=== PATIENT | female | born 1985 | race Caucasian/White ===

== ENCOUNTER 2016-09-05 12:18 | Inpatient (IN) | payer MEDICARE, MEDICAID ==
[~2016-09-05] VITALS: Ht 160 cm; Wt 50.0 kg
[~2016-09-05 12:18] MED LIST: DEPO150I IM; GABA100C4 PO; HYDR-3533 PO; PRED10 PO
[2016-09-05 12:21] VITALS: BP 144/53; PULSE 92; RESP 14; TEMP 98.7; O2SAT 99
--- NOTE | 2016-09-05 12:26 | PD ---
Physical Exam Date Seen by Provider: September 05, 2016 Time Seen by Provider: 12:22 Narrative [address] JAMES FOR LOW NEUTAPHILS COUNT 0.2 . 12 WEEK . ABO. PT OF DR LEVINE. NO F/C, N/V, EASY BRUISING. H/O CVA AND CHRONIC PAIN VVS WAITING FOR BED PLACEMENT Data Data Last Documented VS Vital Signs Date Time Temp Pulse Resp B/P Pulse Ox O2 Delivery O2 Flow Rate FiO2 09/05/16 12:21 98.7 92 14 144/53 99 MDM Medical Record Reviewed: Yes Supervised Visit with VANESA: No iMchael Rodriguez September 05, 2016 12:26
[2016-09-05] MEDS ORDERED: SODIUM CHLOR 0.9% 1000 ML INJ 1,000 ML IV ONE (13:00)
[2016-09-05 13:01] VITALS: PULSE 77; O2SAT 98
[2016-09-05 13:28] LABS: HEMATOCRIT 25.1 % (35.0-46.0); MEAN CELL VOLUME 83.7 FL (80.0-100.0); MEAN CORPUSCULAR HEMOGLOBIN 28.5 PG (27.0-34.0); PLATELET COUNT 98 TH/MM3 (150-450); RED CELL DISTRIBUTION WIDTH 13.6 % (11.6-17.2); WHITE BLOOD COUNT 1.4 TH/MM3 (4.0-11.0)
[2016-09-05 13:34] LABS: HEMO FLAGS AUTO DIFF
[2016-09-05 13:41] LABS: BLOOD, URINE LARGE (NEG); GLUCOSE,URINE NEG (NEG); KETONE, URINE NEG (NEG); MUCUS URINE MOD /lpf (OCC); NITRITE,URINE NEG (NEG); SQUAMOUS EPITHELIAL CELL URINE 3 /hpf (0-5); TRANSITIONAL EPI CELLS, URINE <1 /hpf; URINE COLOR YELLOW (YELLW/STRAW)
[2016-09-05 13:45] LABS: COMMENT (UR) CULT NOT INDICATED; CULTURE IF INDICATED CULT NOT INDICATED
[2016-09-05 14:05] LABS: BANDS 1 % (0-6); BASOPHILS 1 % (0-2); EOSINOPHILS 1 % (0-4); POLYS (SEG NEUTROPHILS) 21 % (16-70); WBC DIFF SAMPLE 100
[2016-09-05 14:08] LABS: NEUTROPHIL # MANUAL DIFF 0.3 TH/MM3 (1.8-7.7)
[2016-09-05 14:10] LABS: OVALOCYTES 1+ (NORMAL); PLATELET ESTIMATE SMEAR LOW (NORMAL); PLATELET MORPHOLOGY NORMAL (NORMAL); SCAN/DIFF FINAL DIFF MANUAL
[2016-09-05] MEDS ORDERED: ASPI81TA5 PO (14:22)
[2016-09-05] MEDS ORDERED: GABA300C5 PO (14:22)
[2016-09-05] MEDS ORDERED: HYDR-3535 PO (14:23)
[2016-09-05] MEDS ORDERED: SODIUM CHLORIDE 0.9% FLUSH 10 ML FLUSH IV FLUSH PRN (15:00)
[2016-09-05] MEDS ORDERED: NALOXONE HCL 0.4 MG/ML AMP IV PRN (15:00)
[2016-09-05] MEDS ORDERED: ONDANSETRON HCL 4 MG/2 ML VIAL IVP PRN (15:00)
--- NOTE | 2016-09-05 15:02 | PD ---
HPI Chief Complaint: Abnormal Results Time Seen by Provider: 12:48 Travel History International Travel<30 days: No Contact w/Intl Traveler<30days: No Traveled to known affect area: No History of Present Illness HPI This is a 30-year-old female with history of lupus, who is also 12 weeks , who presents here at the request of her neurologist, Dr. Ladd. Patient had labs that showed an absolute neutrophil count of 0.2. The patient has had general malaise. She says she is not feeling her normal self. There are no reported fevers, chills. There is no pulmonary symptoms. There is no urinary symptoms suspicious for . The patient had competitions with her first but did deliver and has a healthy daughter. At that time she was seen by Dr. Vasquez, pillow agent. There are no other complaints time my examination. PFSH Past Medical History Arthritis: Yes (RA) Autoimmune Disease: Yes (LUPUS ) Blood Disorders: No Cancer: No Cardiovascular Problems: No Cerebrovascular Accident: Yes Diminished Hearing: No Endocrine: No Gastrointestinal Disorders: Yes Genitourinary: No Immune Disorder: Yes (RA, LUPUS) Implanted Vascular Access Dvce: No Medical other: Yes (LUPUS) Musculoskeletal: Yes Neurologic: No Psychiatric: No Reproductive: No Respiratory: No Immunizations Current: No Tetanus Vaccination: Unknown Influenza Vaccination: No PNEUMOCCOCAL Vaccine (Year): 2 ?: LMP: 06/09/16 Menopausal: No : 1 Para: 1 Past Surgical History Abdominal Surgery: No Cardiac Surgery: No Section: Yes (x1) Ear Surgery: No Endocrine Surgery: No Eye Surgery: No Genitourinary Surgery: No Gynecologic Surgery: Yes Oral Surgery: No Thoracic Surgery: No Other Surgery: Yes (C SECTION) Social History Alcohol Use: No Tobacco Use: No (QUIT 1 MONTH AGO) Substance Use: No Allergies-Medications (Allergen,Severity, Reaction): Coded Allergies: Bactrim (Verified Allergy, Severe, Anaphylaxis, 04/20/14) Sulfa (Unverified Allergy, Severe, Anaphylaxis, 04/25/14) Reported Meds & Prescriptions Reported Meds & Active Scripts Active Reported Lortab (Hydrocodone-Acetaminophen) 10-325 Mg Tab 1 Tab PO Q6H PRN Aspirin DR (Aspirin) 81 Mg Tabdr 81 Mg PO DAILY Gabapentin 300 Mg Cap 300 Mg PO HS Review of Systems Except as stated in HPI: all other systems reviewed are Neg General / Constitutional: No: Fever, Chills HENT: No: Headaches, Lightheadedness Cardiovascular: No: Chest Pain or Discomfort, Palpitations Respiratory: No: Cough, Shortness of Breath Gastrointestinal: Positive: Constipation, No: Nausea, Vomiting, Abdominal Pain Genitourinary: No: Frequency, Dysuria Musculoskeletal: Positive: Weakness (generalized), No: Pain Neurologic: Positive: Weakness (generalized), No: Headache Physical Exam Narrative GENERAL: Well-nourished, well-developed patient, in no acute respiratory distress. SKIN: Focused skin assessment warm/dry. HEAD: Normocephalic/atraumatic. EYES: No scleral icterus. No injection or drainage. Slightly pale conjunctiva. NECK: Supple, trachea midline. No JVD or lymphadenopathy. CARDIOVASCULAR: Regular rate and rhythm without murmurs, gallops, or rubs. RESPIRATORY: Breath sounds equal bilaterally. No accessory muscle use. GASTROINTESTINAL: Abdomen soft, gravid, non-tender, nondistended. MUSCULOSKELETAL: No cyanosis, or edema. Cap refill slightly delayed at 3 seconds. NEUROLOGICAL: Awake and alert. Cranial nerves II through XII intact. Motor within normal limits. Five out of 5 muscle strength in all muscle groups. Normal speech. Data Data Last Documented VS Vital Signs Date Time Temp Pulse Resp B/P Pulse Ox O2 Delivery O2 Flow Rate FiO2 09/05/16 13:01 77 98 09/05/16 12:21 98.7 14 144/53 Orders Complete Blood Count With Diff (09/05/16 12:48) Urinalysis - C+S If Indicated (09/05/16 12:48) Sodium Chlor 0.9% 1000 Ml Inj (Ns 1000 M (09/05/16 13:00) Labs Laboratory Tests Test 09/05/16 13:10 White Blood Count 1.4 TH/MM3 Red Blood Count 3.00 MIL/MM3 Hemoglobin 8.5 GM/DL Hematocrit 25.1 % Mean Corpuscular Volume 83.7 FL Mean Corpuscular Hemoglobin 28.5 PG Mean Corpuscular Hemoglobin 34.0 % Concent Red Cell Distribution Width 13.6 % Platelet Count 98 TH/MM3 Mean Platelet Volume 8.1 FL Neutrophils (%) (Auto) % Lymphocytes (%) (Auto) % Monocytes (%) (Auto) % Eosinophils (%) (Auto) % Basophils (%) (Auto) % Neutrophils # (Auto) TH/MM3 Lymphocytes # (Auto) TH/MM3 Monocytes # (Auto) TH/MM3 Eosinophils # (Auto) TH/MM3 Basophils # (Auto) TH/MM3 CBC Comment AUTO DIFF Differential Total Cells 100 Counted Neutrophils % (Manual) 21 % Band Neutrophils % 1 % Lymphocytes % 65 % Monocytes % 11 % Eosinophils % 1 % Basophils % 1 % Neutrophils # (Manual) 0.3 TH/MM3 Differential Comment FINAL DIFF MANUAL Platelet Estimate LOW Platelet Morphology Comment NORMAL Ovalocytes 1+ Urine Color YELLOW Urine Turbidity HAZY Urine pH 6.0 Urine Specific [place] 1.024 Urine Protein 30 mg/dL Urine Glucose (UA) NEG mg/dL Urine Ketones NEG mg/dL Urine Occult Blood LARGE Urine Nitrite NEG Urine Bilirubin NEG Urine Urobilinogen LESS THAN 2.0 MG/DL Urine Leukocyte Esterase NEG Urine RBC /hpf Urine WBC 2 /hpf Urine Squamous Epithelial 3 /hpf Cells Urine Transitional Epithelial <1 /hpf Cells Urine Mucus MOD /lpf Microscopic Urinalysis Comment CULT NOT INDICATED MDM Medical Decision Making Medical Screen Exam Complete: Yes Emergency Medical Condition: Yes Differential Diagnosis Neutropenia versus lab error versus pancytopenia Narrative Course 22-year-old female presents at the request Dr. Ladd, for neutropenia. The patient is 12 months . The patient has lupus. The patient's repeat CBC showed a absolute neutrophil count of 0.3. Given this, patient will be need to be admitted and have a hematology consult. The case was discussed with Dr. Tutu Castro, on-call physician for [facility], who is agreed for the admission. We'll try to get her admitted to the oncology floor if possible. Diagnosis Primary Impression: Neutropenia Additional Impressions: Pancytopenia Lupus 12 weeks by date Dave Nunze MD September 05, 2016 15:02
[2016-09-05] MEDS ORDERED: FOLIC ACID 1 MG TAB PO ONE (15:15)
[2016-09-05 16:04] LABS: INTERNATIONAL NORMALIZED RATIO 0.9 RATIO; PROTHROMBIN TIME - PATIENT 10.3 SEC (9.8-11.6)
[2016-09-05 16:13] LABS: ALKALINE PHOSPHATASE 65 U/L (45-117); ALT (GPT) 15 U/L (10-53); TOTAL BILIRUBIN ADULT LESS THAN 0.1 MG/DL (0.2-1.0)
[2016-09-05 16:20] LABS: ANION GAP 9 MEQ/L (5-15); AST (GOT) 16 U/L (15-37); BICARBONATE 20.4 MEQ/L (21.0-32.0); BLOOD UREA NITROGEN 12 MG/DL (7-18); CHLORIDE 110 MEQ/L (98-107); GLOMERULAR FILTRATION RATE 180 ML/MIN (>89); POTASSIUM 3.6 MEQ/L (3.5-5.1); SODIUM (NA) 139 MEQ/L (136-145)
[2016-09-05 17:10] VITALS: BP 90/53
--- NOTE | 2016-09-05 17:23 | HHI.HP ---
[facility] No Primary Care Physician Admission Diagnosis absolute neutropenia, lupus, pancytopenia, Diagnoses: Chief Complaint: fatigue, low neutrophil count Travel History International Travel<30 Days: No Contact w/Intl Traveler <30 Da: No Traveled to Known Affected Are: No History of Present Illness Written by NICO Sparks acting as scribe for Dr. Jones] on 09/05/16 at 17 :27. 30 y/o female with a history of Lupus, cva with rt sided weakness, who is currently 12 weeks was sent by her neurologist for a low neutrophil count, .02, on labs done by Neurologist because of history of cva. She is not on any immunosuppressive therapy. Last use of prednisone was 2 years ago. She states her diet is not good, sick lately, but she associated this to the . She denies any chest pain, sob, fever or chills. She has chronic pain on rt side from stroke residual. She does not have a PCP or a senior principal software engineer. OB: Dr. Wheat Neurologist is Dr. Ladd Review of Systems Constitutional: COMPLAINS OF: Fatigue, DENIES: Fever, Weight loss, Chills, Dizziness Ears, nose, mouth, throat: DENIES: Throat pain, Sinus Pain Respiratory: DENIES: Cough, Shortness of breath Cardiovascular: DENIES: Chest pain, Lower Extremity Edema Gastrointestinal: COMPLAINS OF: Constipation, DENIES: Abdominal pain, Nausea, Vomiting Genitourinary: DENIES: Hematuria, Dysuria Musculoskeletal: COMPLAINS OF: Joint pain (chronic), DENIES: Back pain, Neck pain Integumentary: DENIES: Rash Neurologic: DENIES: Headache Past Family Social History Past Medical History Chronic pain in right hand , and right leg Lupus CVA Past Surgical History c section Reported Medications Reported Meds & Active Scripts Active Reported Lortab (Hydrocodone-Acetaminophen) 10-325 Mg Tab 1 Tab PO Q6H PRN Aspirin DR (Aspirin) 81 Mg Tabdr 81 Mg PO DAILY Gabapentin 300 Mg Cap 300 Mg PO HS Allergies: Coded Allergies: Bactrim (Verified Allergy, Severe, Anaphylaxis, 04/20/14) Sulfa (Unverified Allergy, Severe, Anaphylaxis, 04/25/14) Active Ordered Medications Current Medications Medications (Trade) Dose Ordered Sig/Libby Route Start Time Stop Time Status Last Admin (NS Flush) 2 ml UNSCH PRN IV FLUSH 09/05/16 15:00 (NS Flush) 2 ml BID IV FLUSH 09/05/16 21:00 (Zofran Inj) 4 mg Q6H PRN IVP 09/05/16 15:00 (Narcan Inj) 0.4 mg UNSCH PRN IV 09/05/16 15:00 (Folate) 1 mg DAILY PO 09/06/16 09:00 Family History Sister's: lupus Grandmother: DM DAD: melanoma Social History Tobacco use: Quit July 27, 04/21 ppd prior Alcohol use: Denies Illicit drug use: Marijuana, stopped July 27 Physical Exam Vital Signs Vital Signs Date Time Temp Pulse Resp B/P Pulse Ox O2 Delivery O2 Flow Rate FiO2 09/05/16 17:10 76 18 90/53 99 09/05/16 13:01 77 98 09/05/16 12:21 98.7 92 14 144/53 99 Physical Exam GENERAL: This is a thin patient, in no apparent distress. SKIN: No rashes, ecchymoses or lesions. Cool and dry. HEAD: Atraumatic. Normocephalic. No temporal or scalp tenderness. EYES: Pupils equal round and reactive. Extraocular motions intact. No scleral icterus. ENT: Nose without bleeding, purulent drainage or septal hematoma. Airway patent. NECK: Trachea midline. No JVD or lymphadenopathy. Supple, nontender, no meningeal signs. CARDIOVASCULAR: Regular rate and rhythm without murmurs, gallops, or rubs. RESPIRATORY: Clear to auscultation. Breath sounds equal bilaterally. No wheezes , rales, or rhonchi. GASTROINTESTINAL: Abdomen soft, non-tender, nondistended. No hepato-splenomegaly , or palpable masses. No guarding. MUSCULOSKELETAL: Extremities without clubbing, cyanosis, or edema. No joint tenderness, effusion, or edema noted. No calf tenderness. NEUROLOGICAL: Awake and alert. Motor and sensory grossly within normal limits. DTR +3 right, +2left, weaker on the right. Normal speech. Laboratory Laboratory Tests Test 09/05/16 09/05/16 13:10 15:15 White Blood Count 1.4 Red Blood Count 3.00 Hemoglobin 8.5 Hematocrit 25.1 Mean Corpuscular Volume 83.7 Mean Corpuscular Hemoglobin 28.5 Mean Corpuscular Hemoglobin 34.0 Concent Red Cell Distribution Width 13.6 Platelet Count 98 Mean Platelet Volume 8.1 Neutrophils (%) (Auto) Lymphocytes (%) (Auto) Monocytes (%) (Auto) Eosinophils (%) (Auto) Basophils (%) (Auto) Neutrophils # (Auto) Lymphocytes # (Auto) Monocytes # (Auto) Eosinophils # (Auto) Basophils # (Auto) CBC Comment AUTO DIFF Differential Total Cells 100 Counted Neutrophils % (Manual) 21 Band Neutrophils % 1 Lymphocytes % 65 Monocytes % 11 Eosinophils % 1 Basophils % 1 Neutrophils # (Manual) 0.3 Differential Comment FINAL DIFF MANUAL Platelet Estimate LOW Platelet Morphology Comment NORMAL Ovalocytes 1+ Urine Color YELLOW Urine Turbidity HAZY Urine pH 6.0 Urine Specific [place] 1.024 Urine Protein 30 Urine Glucose (UA) NEG Urine Ketones NEG Urine Occult Blood LARGE Urine Nitrite NEG Urine Bilirubin NEG Urine Urobilinogen LESS THAN 2.0 Urine Leukocyte Esterase NEG Urine RBC Urine WBC 2 Urine Squamous Epithelial 3 Cells Urine Transitional Epithelial <1 Cells Urine Mucus MOD Microscopic Urinalysis Comment CULT NOT INDICATED Prothrombin Time 10.3 Prothromb Time International 0.9 Ratio Sodium Level 139 Potassium Level 3.6 Chloride Level 110 Carbon Dioxide Level 20.4 Anion Gap 9 Blood Urea Nitrogen 12 Creatinine 0.42 Estimat Glomerular Filtration 180 Rate Random Glucose 107 Calcium Level 8.3 Total Bilirubin LESS THAN 0.1 Aspartate Amino Transf 16 (AST/SGOT) Alanine Aminotransferase 15 (ALT/SGPT) Alkaline Phosphatase 65 Total Protein 6.1 Albumin 2.8 Result Diagram: 09/05/16 1310 09/05/16 1515 Assessment and Plan Problem List: (1) Neutropenia ICD Code: D70.9 Status: Acute (2) ICD Code: Z33.1 Status: Acute (3) Lupus ICD Code: M32.9 Status: Chronic Assessment and Plan 30 y/o female with a history of Lupus, cva with rt sided weakness, who is currently 12 weeks was sent by her neurologist for a low neutrophil count, .02, on labs done by Neurologist because of history of cva. Neutropenia, 03 on cbc, baseline 1.1 roughly -consult hematology, for recommendations -neutropenic precautions -Monitor for fevers, will need cefepime IV if fever develops , 12 weeks -Consult OB Constipation, likely related to , no BM in 4 days -Senokot daily -MOM PRN, avoid suppositories or enemas, due to neutrophil count Lupus, chronic -BRISA, and ESR ordered -Cont home medications gabapentin, Lortab and asa DVT prophylaxis: SCDs Code Status Full Discussed Condition With Patient and RN Physician Certification 2 Midnight Certification Type: Admission for Inpatient Services Order for Inpatient Services The services are ordered in accordance with Medicare regulations or non- Medicare payer requirements, as applicable. In the case of services not specified as inpatient-only, they are appropriately provided as inpatient services in accordance with the 2-midnight benchmark. Estimated LOS (days): 2 days is the estimated time the patient will need to remain in the hospital, assuming treatment plan goals are met and no additional complications. Post-Hospital Plan: Home Notes: This note was transcribed by scribe [Ashanti Laird]. I, Dr. Tutu Castro personally performed the history, physical exam, and medical decision making; and confirmed the accuracy of the information in the transcribed note. Authenticated by Dr. Tutu Castro on 09/06/16 at 15:10. Problem Qualifiers (1) : Qualified Code: Z3A.12 - 12 weeks gestation of Ashanti Laird September 05, 2016 17:23 Tutu Castro MD September 06, 2016 15:10
[2016-09-05 18:00] VITALS: BP 103/66; PULSE 78; RESP 16; TEMP 96.4; O2SAT 100
[2016-09-05] MEDS ORDERED: MAGNESIUM HYDROXIDE SUSP 30 ML CUP PO PRN (18:00)
[2016-09-05] MEDS ORDERED: ACETAMINOPHEN/HYDROcodone 325 MG/10 MG TAB PO PRN (18:00)
[2016-09-05] MEDS ORDERED: SENNOSIDES 8.6 MG TAB PO SCH (18:00)
[2016-09-05 20:00] VITALS: BP 96/46; PULSE 67; RESP 16; TEMP 97.4; O2SAT 100
[2016-09-05] MEDS ORDERED: SODIUM CHLORIDE 0.9% FLUSH 10 ML FLUSH IV FLUSH SCH (21:00)
[2016-09-05] MEDS ORDERED: GABAPENTIN 300 MG CAP PO SCH (21:00)
[2016-09-05] MEDS ORDERED: CYANOCOBALAMIN 1000 MCG/ML VIAL SQ ONE (22:15)
[2016-09-05] MEDS ORDERED: IRON SUCROSE INJ 100 MG in SODIUM CHLORIDE 0.9% INJ 100 ML IV ONE (22:30)
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
[2016-09-06 00:12] VITALS: BP 79/40
[2016-09-06] MEDS ORDERED: SODIUM CHLOR 0.9% 1000 ML INJ 1,000 ML IV ONE ×2 (00:15→05:00)
[2016-09-06 02:27] VITALS: BP 88/42
[2016-09-06] MEDS ORDERED: SODIUM CHLORID 0.9% 500 ML INJ 500 ML IV ONE (02:45)
[2016-09-06 04:10] LABS: BASOPHIL % 0.5 % (0.0-2.0); EOSINOPHIL % 0.9 % (0.0-4.0); HEMATOCRIT 21.3 % (35.0-46.0); LYMPH % 76.3 % (9.0-44.0); MEAN CELL VOLUME 83.2 FL (80.0-100.0); MEAN CORPUSCULAR HEMOGLOBIN 28.3 PG (27.0-34.0); NEUT % 13.3 % (16.0-70.0); PLATELET COUNT 85 TH/MM3 (150-450); RED BLOOD COUNT 2.56 MIL/MM3 (4.00-5.30); RED CELL DISTRIBUTION WIDTH 13.3 % (11.6-17.2); WHITE BLOOD COUNT 1.3 TH/MM3 (4.0-11.0)
[2016-09-06 04:11] LABS: HEMO FLAGS AUTO DIFF
[2016-09-06 04:24] VITALS: BP 88/44; PULSE 68; RESP 16; TEMP 97.8; O2SAT 99
[2016-09-06 04:24] LABS: REVIEW FLAG FINAL
[2016-09-06 04:40] LABS: ANION GAP 9 MEQ/L (5-15); AST (GOT) 10 U/L (15-37); BICARBONATE 21.1 MEQ/L (21.0-32.0); BLOOD UREA NITROGEN 10 MG/DL (7-18); CHLORIDE 111 MEQ/L (98-107); GLOMERULAR FILTRATION RATE 222 ML/MIN (>89); POTASSIUM 3.7 MEQ/L (3.5-5.1); SODIUM (NA) 141 MEQ/L (136-145)
[2016-09-06 04:59] LABS: ALKALINE PHOSPHATASE 58 U/L (45-117); ALT (GPT) 14 U/L (10-53); FERRITIN 41 NG/ML (8-252); LDH SERUM 88 U/L (84-246); TOTAL BILIRUBIN ADULT LESS THAN 0.1 MG/DL (0.2-1.0); TRANSFERRIN IRON PROFILE 146 MG/DL (200-360)
[2016-09-06 05:29] LABS: AUTOMATED NEUTROPHIL # 0.2 TH/MM3 (1.8-7.7); OVALOCYTES 1+ (NORMAL)
[2016-09-06 05:30] LABS: PLATELET ESTIMATE SMEAR LOW (NORMAL); PLATELET MORPHOLOGY ENLARGED (NORMAL); SCAN/DIFF AUTO DIFF CONFIRMED
[2016-09-06 06:38] VITALS: BP 90/60
[2016-09-06] MEDS ORDERED: ACETAMINOPHEN 325 MG TAB PO PRN (07:30)
[2016-09-06] MEDS ORDERED: ACETAMINOPHEN/HYDROcodone 325 MG/5 MG TAB PO PRN (07:30)
--- NOTE | 2016-09-06 07:59 | PD.AMA ---
Against Medical Advice Note Discharge Disposition: Against Medical Advice Pt Condition on Discharge: Stable AMA Statement Spoke with nurse at approximately 0800 this AM. Patient Soha Oscar has decided to leave the hospital against medical advice. Per nursing, states she wants to go to another hospital. This patient has the capacity to refuse care and understands the risks of leaving, including permanent disability and/or , and has had an opportunity to ask questions about her condition. The patient has been informed that she may return for care at any time, and follow up has been arranged/advised. Pancho Vicente MD R3 September 06, 2016 07:59
[2016-09-06] MEDS ORDERED: FOLIC ACID 1 MG TAB PO SCH (09:00)
[2016-09-06] MEDS ORDERED: PRENATAL VITAMIN CHEWABLE TAB CHEW SCH (09:00)
[2016-09-06] MEDS ORDERED: ASPIRIN EC 81 MG TABEC PO SCH (09:00)
--- NOTE | 2016-09-06 12:37 | RADRPT ---
EXAM DATE/TIME: 09/06/2016 07:31 [facility] COMPARISON: US ABDOMEN - LIVER, September 04, 2013, 18:54. INDICATIONS : Thrombocytopenia. MEDICAL HISTORY : Arthritis. Rheumatoid arthritis. Lupus. CVA. Hepaitis. SURGICAL HISTORY : section. Blood transfusions. ENCOUNTER: Initial ACUITY: 2 days PAIN SCORE: 0/10 LOCATION: Bilateral upper quadrant MEASUREMENTS: LIVER: 18.9 cm length COMMON DUCT: 4 mm RIGHT KIDNEY: 12.2 x 5.4 x 4.6 cm SPLEEN: 13.5 cm length FINDINGS: LIVER: Hypodense lesion is again identified in the posterior right lobe of the liver. It measures 2.6 x 2.1 x 1.5 cm compared to 3.1 x 2.6 cm on the prior study. The previously noted left lobe lesion is not se en on the current study. COMMON DUCT: No intraluminal mass or stone visualized. GALLBLADDER: Contains no stones, demonstrates no wall thickening or pericholecystic fluid. PANCREAS: The visualized portions are within normal limits. RIGHT KIDNEY: No hydronephrosis, stone or mass. SPLEEN: No focal lesion. CONCLUSION: Decrease in size of right lobe hepatic lesion. Left lobe hepatic lesion seen on prior study not seen today. Borderline splenomegaly noted. Gregorio Cosme MD on September 06, 2016 at 12:32 Board Certified Radiologist. This report was verified electronically.
[2016-09-08 13:23] LABS: ANA SCREEN POS (NEG)
[2016-09-13 19:52] LABS: BETA2 GLYCOPROTEIN I AB IGA LESS THAN 9.0 SAU (< OR = 20)
== END 2016-09-06 08:14 | disposition left against medical advice (07) | DRG 781 ==
LOC: NEPC 12:18 → NEDA 15:05 → HOCA 17:38
PROVIDERS: ADMIT Family Medicine; ATTEND Family Medicine
DX: O26.91 Pregnancy related conditions, unspecified, first trimester (principal); M32.9 Systemic lupus erythematosus, unspecified; D70.8 Other neutropenia; I69.351 Hemiplegia and hemiparesis following cerebral infarction affecting right dominant side; G89.29 Other chronic pain; K59.00 Constipation, unspecified; O99.321 Drug use complicating pregnancy, first trimester; O99.351 Diseases of the nervous system complicating pregnancy, first trimester; O99.411 Diseases of the circulatory system complicating pregnancy, first trimester; O99.89 Other specified diseases and conditions complicating pregnancy, childbirth and the puerperium; Z3A.12 12 weeks gestation of pregnancy
CPT/HCPCS: 76705; 80053; 81001; 82607; 82728; 83540; 83550; 83615; 85007; 85025; 85027; 85044; 85060; 85610; 85613; 85652; 85730; 86038; 86039; 86147; 96360; J1756; J3420; J7030; J7040

== ENCOUNTER 2016-10-29 04:29 | Emergency (ER) | payer MEDICARE, MEDICAID ==
[~2016-10-29 04:29] MED LIST changes: +ASPI81TA5 PO; -DEPO150I IM; -GABA100C4 PO; +GABA300C5 PO; -HYDR-3533 PO; +HYDR-3535 PO; -PRED10 PO
[2016-10-29 05:10] LABS: AMPHETAMINE, URINE NEG (NEG); BARBITURATES, URINE NEG (NEG); COCAINE, URINE NEG (NEG)
[2016-10-29 05:14] LABS: BACTERIA, URINE RARE /hpf; BLOOD, URINE SMALL (NEG); GLUCOSE,URINE NEG (NEG); KETONE, URINE NEG (NEG); NITRITE,URINE NEG (NEG); PH, URINE 6.5 (5.0-8.5); SQUAMOUS EPITHELIAL CELL URINE 2 /hpf (0-5); URINE COLOR YELLOW (YELLW/STRAW)
[2016-10-29 05:17] LABS: COMMENT (UR) CULT NOT INDICATED; CULTURE IF INDICATED CULT NOT INDICATED
[2016-10-29] MEDS ORDERED: PROM25TA10 PO (06:00)
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
[2016-11-03 07:53] LABS: HYDROMORPHONE U POS (NEG)
[2016-11-03 07:54] LABS: BATH SALTS (MDPV) UR NEG (NEG); ECSTASY (MDMA) UR NEG (NEG); GABAPENTIN UR POS (NEG); HEROIN (6-ACETYLMORPHINE) UR NEG (NEG); K2 SPICE UR NEG (NEG); OBMETHADONE UR NEG (NEG); OXYCODONE (PERCODAN) NEG (NEG); PHENCYCLIDINE URINE NEG (NEG)
== END 2016-10-29 06:06 | disposition home or self-care (01) ==
LOC: HOBED 04:29
DX: O26.899 Other specified pregnancy related conditions, unspecified trimester (principal); R10.9 Unspecified abdominal pain; M32.9 Systemic lupus erythematosus, unspecified; I69.998 Other sequelae following unspecified cerebrovascular disease; D61.818 Other pancytopenia; D70.9 Neutropenia, unspecified; D64.9 Anemia, unspecified; Z3A.20 20 weeks gestation of pregnancy; Z79.82 Long term (current) use of aspirin
CPT/HCPCS: 80307; 81001; 99283; G0481